=== PATIENT | male | born 1935 | race Caucasian/White ===

== ENCOUNTER 2016-05-24 20:56 | Inpatient (IN) | payer MEDICARE, BC ==
[~2016-05-24] VITALS: Ht 177.8 cm; Wt 70.8 kg
[~2016-05-24 20:56] MED LIST: ASPI-612 PO; MULT-70 PO
[2016-05-24] MEDS ORDERED: TDAP DIPH,PERTUSS,TET VAC/PF 0.5 ML DISP.SYRIN IM ONE ×2 (21:30→22:15)
[2016-05-24 22:13] LABS: BASOPHILS % (AUTO) 0.4 % (0.0-2.0); EOSINOPHILS # (AUTO) 0.1 K/uL (0.0-0.7); EOSINOPHILS % (AUTO) 1.5 % (0.0-7.0); HEMATOCRIT 39.1 % (40.0-50.0); HEMOGLOBIN 13.2 g/dL (14.0-18.0); LYMPHOCYTES # (AUTO) 0.7 K/uL (0.8-4.8); LYMPHOCYTES % (AUTO) 10.8 % (20.5-51.5); MEAN CORPUSCULAR HEMOGLOBIN 30.5 uug (27.0-31.0); MEAN CORPUSCULAR HGB CONC 34 g/dL (32.0-37.0); MEAN CORPUSCULAR VOLUME 90.7 fL (82.0-92.0); MONOCYTES # (AUTO) 0.9 K/uL (0.1-1.30); MONOCYTES % (AUTO) 12.6 % (0.0-11.0); NEUTROPHILS # (AUTO) 5.2 K/uL (1.8-8.9); NEUTROPHILS % (AUTO) 74.7 % (38.5-71.5); PLATELET COUNT (AUTO) 179 K/uL (150-450); RED BLOOD CELL COUNT(AUTO) 4.32 MIL/uL (4.70-6.10); RED CELL DISTRIBUTION WIDTH 12.4 % (11.5-14.5); WHITE BLOOD COUNT (AUTO) 6.9 K/uL (4.0-11.2)
[2016-05-24 22:14] LABS: CALCIUM 8.8 mg/dL (8.5-10.1); POTASSIUM 3.8 mmol/L (3.5-5.1)
[2016-05-24 22:15] LABS: CREATININE 1.5 mg/dL (0.6-1.3)
[2016-05-24 22:19] LABS: ALBUMIN 3.2 g/dL (3.4-5.0); BILIRUBIN,DIRECT 0.2 mg/dL (0.0-0.2); BILIRUBIN,TOTAL 0.7 mg/dL (0.2-1.0); TOTAL PROTEIN, SERUM 7.1 g/dL (6.4-8.2)
[2016-05-24 22:26] LABS: THYROID STIMULATING HORMONE 1.07 mIU/mL (0.358-3.740)
[2016-05-24] MEDS ORDERED: ASPIRIN 325 MG TABLET PO ONE (23:30)
[2016-05-24 23:35] LABS: *BILIRUBIN,URIN NEGATIVE (NEGATIVE); *BLOOD, URINE Trace-lysed (NEGATIVE); *CLARITY,URINE CLEAR (CLEAR); *COLOR,URINE YELLOW (YELLOW); *KETONES,URINE NEGATIVE (NEGATIVE); *PROTEIN,URINE NEGATIVE (NEGATIVE); *UROBILINOGEN,URINE 0.2 E.U./dl (NORMAL); LEUKOCYTE ESTERASE ,URINE NEGATIVE (NEGATIVE); NITRITE, URINE NEGATIVE (NEGATIVE); PH,URINE 5.5 (5.0-8.0); UGLUCOSE NEGATIVE (NEGATIVE)
[2016-05-24 23:45] LABS: BACTERIA,URINE FEW /HPF (NONE SEEN); RBC,URINE 0-3 /HPF (0-3); SQUAMOUS EPITHELIAL CELL,UR FEW /HPF (NONE SEEN); WBC,URINE NONE SEEN /HPF (0-3)
[2016-05-24] MEDS ORDERED: ASPIRIN 325 MG TABLET ONE (23:47)
[2016-05-25] VITALS (8 sets, daily range): BP systolic 85–102; BP diastolic 52–63
[2016-05-25] MEDS ORDERED: ONDANSETRON 4 MG/2 ML VIAL IV PRN (01:45)
[2016-05-25] MEDS ORDERED: HYDROCODONE/APAP 5-325MG TABLET PO PRN (01:45)
[2016-05-25] MEDS ORDERED: ACETAMINOPHEN 325 MG TABLET PO PRN (01:45)
[2016-05-25] MEDS ORDERED: IV NS 1000 ML 1,000 ML IV PRN (01:45)
[2016-05-25] MEDS ORDERED: ZOLPIDEM 5 MG TABLET PO PRN (01:45)
[2016-05-25] MEDS ORDERED: MAGNESIUM HYDROXIDE 30 ML LIQUID UDC PO PRN (01:45)
[2016-05-25] MEDS ORDERED: Z GUARD REMEDY PASTE 57 GM TUBE TOP PRN (01:45)
[2016-05-25] MEDS ORDERED: PANTOPRAZOLE SODIUM 40 MG TABLET.DR PO SCH (07:00)
[2016-05-25] MEDS ORDERED: ASPIRIN 325 MG TABLET PO SCH (09:00)
[2016-05-25] MEDS ORDERED: HYDR-3326 PO (21:12)
[2016-05-25] MEDS ORDERED: Acetaminophen PO (21:12)
[2016-05-25] MEDS ORDERED: PANT40TA2 PO (21:12)
[2016-05-25] MEDS ORDERED: Ondansetron Hcl/Pf IV (21:12)
[2016-05-25] MEDS ORDERED: MAGN400O4 PO (21:12)
== END 2016-05-25 22:30 | disposition short-term general hospital (02) | DRG 871 ==
LOC: ER 20:56 → TELE 05-25 00:54
PROVIDERS: ADMIT Nurse Practitioner Acute Care; ATTEND Internal Medicine
DX: A41.9 Sepsis, unspecified organism (principal); I21.4 Non-ST elevation (NSTEMI) myocardial infarction; N17.0 Acute kidney failure with tubular necrosis; I50.31 Acute diastolic (congestive) heart failure; I70.0 Atherosclerosis of aorta; M19.90 Unspecified osteoarthritis, unspecified site; E78.5 Hyperlipidemia, unspecified; J43.9 Emphysema, unspecified; Z79.82 Long term (current) use of aspirin; E11.65 Type 2 diabetes mellitus with hyperglycemia; Z98.890 Other specified postprocedural states; T19.4 Foreign body in penis; X58.XXXS Exposure to other specified factors, sequela
CPT/HCPCS: 36415; 70030-TC; 70450; 71010; 82306; 83690; 84443; 85025; 87086; 90715; 92506; 93005; 93307; 97001; 97003; A4663; J7030

== ENCOUNTER 2017-01-14 19:55 | Emergency (ER) | payer MEDICARE, BC ==
[~2017-01-14] VITALS: Ht 177.8 cm; Wt 73.5 kg
[~2017-01-14 19:55] MED LIST changes: +Acetaminophen PO; +HYDR-3326 PO; +MAGN400O6 PO; -MULT-70 PO; +MULT1TAB73 PO; +Ondansetron Hcl/Pf IV; +PANT40TA2 PO
--- NOTE | 2017-01-14 20:19 | NUR ---
DR HUANG INTO EVAL PATIENT
--- NOTE | 2017-01-14 20:47 | NUR ---
Pt states he fell on left elbow 2 weeks ago and fell a second time 1 week ago, c/o pain and swelling of left elbow. Pt denies CP, SOB, dizziness, n/v, no other complaints, no distress noted.
--- NOTE | 2017-01-14 22:45 | NUR ---
Pt will be getting CT or arm. Collies splint removed.
--- NOTE | 2017-01-15 01:29 | NUR ---
Gave pt RX and d/c instructions, verbalized understanding.
== END 2017-01-15 01:39 | disposition home or self-care (01) ==
LOC: ER 19:59
DX: S52.022A Displaced fracture of olecranon process without intraarticular extension of left ulna, initial encounter for closed fracture (principal); S62.162A Displaced fracture of pisiform, left wrist, initial encounter for closed fracture; S62.142A Displaced fracture of body of hamate [unciform] bone, left wrist, initial encounter for closed fracture; M19.90 Unspecified osteoarthritis, unspecified site; Z79.82 Long term (current) use of aspirin; W18.30XA Fall on same level, unspecified, initial encounter; Y93.89 Activity, other specified; Y92.89 Other specified places as the place of occurrence of the external cause; Y99.8 Other external cause status
CPT/HCPCS: 29105; 73080; 73090; 73130; 73200 ×2; 99284; A4663